=== PATIENT | male | born 1980 | race Caucasian/White ===

== ENCOUNTER 2016-04-05 18:56 | Emergency (ER) | payer OTHER ==
[~2016-04-05] VITALS: Ht 182.9 cm; Wt 123.9 kg
[2016-04-05 19:01] VITALS: BP 151/91; PULSE 100; RESP 20; TEMP 98.9; O2SAT 97
[2016-04-05] MEDS ORDERED: HYDR12.57 PO (19:15)
[2016-04-05] MEDS ORDERED: BLOOD PRESSURE PILL PO (19:15)
[2016-04-05] MEDS ORDERED: LIDOCAINE 1%/EPINEPHrine 1:100,000 SOLN 20 ML VIAL INFIL ONE (19:45)
[2016-04-05] MEDS ORDERED: TETANUS/DIPHTHERIA TOXOID ADULT 0.5 ML VIAL IM ONE (19:45)
[2016-04-05] MEDS ORDERED: LIDOCAINE 1%/EPINEPHrine 1:100,000 SOLN 30 ML VIAL INFIL ONE (19:45)
--- NOTE | 2016-04-05 19:49 | PD ---
HPI Chief Complaint: Laceration/Skin Injury Time Seen by Provider: 19:30 Travel History International Travel<30 days: No Contact w/Intl Traveler<30days: No Traveled to known affect area: No History of Present Illness HPI 36-year-old male presents to the emergency room for evaluation of laceration to the right thenar eminence that occurred just prior to arrival. Patient was using a mandolin to chop onions when his hand slipped. He applied a pressure dressing and came to the emergency room. Denies significant pain or loss of range of motion. Unknown last tetanus. [facility] Past Medical History Hypertension: Yes Tetanus Vaccination: > 5 Years Influenza Vaccination: No ?: Not Social History Alcohol Use: No Tobacco Use: No Substance Use: No Allergies-Medications (Allergen,Severity, Reaction): Coded Allergies: No Known Allergies (Unverified , 04/05/16) Reported Meds & Prescriptions Reported Meds & Active Scripts Active Reported [Blood Pressure Pill] 1 Tab PO BID Hydrochlorothiazide 12.5 Mg Cap 6.25 Mg PO DAILY Review of Systems Except as stated in HPI: all other systems reviewed are Neg Physical Exam Narrative GENERAL: Well-nourished, well-developed male in no acute distress. Afebrile. Ambulatory. SKIN: Warm and dry. There is a 3 cm curvilinear superficial laceration to the right thenar eminence. Moderately bleeding. Full range of motion of the hand. HEAD: Normocephalic. EYES: No scleral icterus. No injection or drainage. NECK: Supple, trachea midline. No JVD or lymphadenopathy. Data Data Last Documented VS Vital Signs Date Time Temp Pulse Resp B/P Pulse Ox O2 Delivery O2 Flow Rate FiO2 04/05/16 19:01 98.9 100 20 151/91 97 Orders Lidocai-Epi 1%-1:100,000 Inj (Xylocaine- (04/05/16 19:45) Tetanus/Diphtheria Tox Adult (Tetanus/Di (04/05/16 19:45) Lidocai-Epi 1%-1:100,000 Inj (Xylocaine- (04/05/16 19:45) MDM Medical Decision Making Medical Screen Exam Complete: Yes Emergency Medical Condition: Yes Medical Record Reviewed: Yes Differential Diagnosis Laceration versus abrasion versus a skin tear Narrative Course 36-year-old male presents to the emergency room for evaluation of laceration to his right thenar eminence that occurred just prior to arrival. Tetanus was updated. Wound is bleeding moderately. There is a 3 cm curvilinear superficial laceration to the right thenar eminence. No neurovascular injury or loss of range of motion. Laceration was repaired, see procedure note for details. Patient discharged with wound care instructions and told to follow up with a primary care physician or return for worsening symptoms. He understands and agrees to plan. Procedures Procedure Narrative LACERATION LOCATION: Right thenar eminence LENGTH: 3 cm NUMBER OF STITCHES/RAI: 5 simple interrupted REPAIR: The area of the laceration was prepped with Betadine and sterilely draped. The laceration was infiltrated with 1% lidocaine with epinephrine. The wound was copiously irrigated and explored without evidence of foreign body , tendon injury or neurovascular injury. The wound was closed using 5-0 Prolene. This was a single layer repair. A sterile dressing was applied. The patient was advised to keep the dressing clean and dry. Patient tolerated the procedure well. Diagnosis Primary Impression: Laceration of right hand Qualified Code: S61.411A - Laceration of right hand, initial encounter Referrals: Primary Care Physician Patient Instructions: General Instructions, Laceration (ED) Additional Instructions: Rest and drink plenty of fluids. Keep wound clean and dry. Apply triple antibiotic ointment daily. Return in 7- 10 days to have sutures removed. Follow-up with a primary care physician. Return to the emergency room for worsening symptoms. Disposition: 01 DISCHARGE HOME Condition: Stable Em Crowder Apr 05, 2016 19:49
== END 2016-04-05 20:30 | disposition home or self-care (01) ==
LOC: PHEFT 18:56
DX: S61.411A Laceration without foreign body of right hand, initial encounter (principal); Z23 Encounter for immunization; W26.0XXA Contact with knife, initial encounter; Y93.G1 Activity, food preparation and clean up; Y92.9 Unspecified place or not applicable
CPT/HCPCS: 12002; 90471; 90714